=== PATIENT | male | born 1950 | race Caucasian/White ===

== ENCOUNTER → 2020-07-23 | Day surgery (SDC) | payer MEDICARE, OTHER ==
[~2020-07-23] MED LIST: FLOMAX0.4 MG PO; GLUCOTROL 10 MG10 MG PO; NADOLOL20 MG PO; NORCO 7.5-3251 EACH PO; PRAVACHOL40 MG PO; TRULICITY1.5 MG/0.5 SQ; VOLTAREN100 GM TP; ZANAFLEX4 MG PO
== END | disposition home or self-care (01) ==
LOC: OR 07:55
DX: K74.60 Unspecified cirrhosis of liver (principal); I85.10 Secondary esophageal varices without bleeding; K76.6 Portal hypertension; K31.89 Other diseases of stomach and duodenum; E11.9 Type 2 diabetes mellitus without complications; Z86.19 Personal history of other infectious and parasitic diseases
CPT/HCPCS: 82962; J2704; J7040

== ENCOUNTER → 2021-08-26 | Day surgery (SDC) | payer MEDICARE, OTHER ==
[~2021-08-26] MED LIST changes: +FOLIC ACID 1 MG1 MG PO; +JARDIANCE25 MG PO; +LEVOTHYROXINE25 MC1 PO; +TRIAMCINOLONE A80 GM TP; +TRULICITY0.75 MG/0. SQ; +VITAMIN B3; +VITAMIN C500 MG PO
== END | disposition home or self-care (01) ==
LOC: OR 07:00
DX: K74.60 Unspecified cirrhosis of liver (principal); I85.10 Secondary esophageal varices without bleeding; K76.6 Portal hypertension; E66.3 Overweight; K31.89 Other diseases of stomach and duodenum; E11.9 Type 2 diabetes mellitus without complications; Z68.25 Body mass index [BMI] 25.0-25.9, adult; Z20.822 Contact with and (suspected) exposure to COVID-19; E03.9 Hypothyroidism, unspecified; I10 Essential (primary) hypertension
CPT/HCPCS: J2704; J7040

== ENCOUNTER → 2021-09-16 | Day surgery (SDC) | payer MEDICARE, OTHER ==
[~2021-09-16] MED LIST changes: +PROPRANOLOL HCL20 MG PO; +VITAMIN D3125 MC1 PO
== END | disposition home or self-care (01) ==
LOC: OR 07:21
DX: I85.00 Esophageal varices without bleeding (principal); K74.69 Other cirrhosis of liver; K76.6 Portal hypertension; K31.89 Other diseases of stomach and duodenum; E66.3 Overweight; E11.9 Type 2 diabetes mellitus without complications; Z80.0 Family history of malignant neoplasm of digestive organs; Z20.822 Contact with and (suspected) exposure to COVID-19; Z98.890 Other specified postprocedural states
CPT/HCPCS: 82962; J2704; J3010; J7040

== ENCOUNTER → 2022-03-19 | Day surgery (SDC) | payer MEDICARE, OTHER ==
[~2022-03-19] MED LIST changes: +DIFLUCAN100 MG PO; +LOSARTAN POTASS50 MG PO; +OZEMPIC1 MG/0.71 SQ; +PRAVASTATIN SOD40 MG PO
== END | disposition home or self-care (01) ==
LOC: OR 07:30
DX: K74.69 Other cirrhosis of liver (principal); I85.10 Secondary esophageal varices without bleeding; K22.89 Other specified disease of esophagus; K76.6 Portal hypertension; K31.89 Other diseases of stomach and duodenum; E11.9 Type 2 diabetes mellitus without complications; F17.220 Nicotine dependence, chewing tobacco, uncomplicated
CPT/HCPCS: 82962; J2704; J7040